=== PATIENT | female | born 1955 | race African-American/Black ===

== ENCOUNTER → 2018-09-25 07:24 | Outpatient (CLI) | payer MEDICAID ==
[2010-12-14 08:25] VITALS: BMI 28.9
== END | disposition home or self-care (01) ==
LOC: D.US 07:24
DX: N28.9 Disorder of kidney and ureter, unspecified (principal)

== ENCOUNTER 2019-07-26 15:56 | Inpatient (IN) | payer MEDICAID ==
[~2019-07-26] VITALS: Ht 170.2 cm; Wt 77.3 kg
[2019-07-26 16:12] LABS: BASOPHILS 0.9 % (0-2); EOSINOPHILS 7.5 % (0-7); HEMATOCRIT 34.4 % (36.0-48.0); HEMOGLOBIN 10.8 g/dL (12-16); IMMATURE GRANULOCYTES 0.2 % (0-5); LYMPHOCYTES 34.7 % (15-50); MCH 22.5 pg (26.0-34.0); MCHC 31.4 g/dL (31.0-37.0); MCV 71.7 fL (80.0-100.0); MEAN PLATELET VOLUME 10.5 fL (7.4-10.4); MONOCYTES 6.7 % (2-11); PLATELET COUNT 281 10x3/uL (130-400); RDW 15.3 % (11.5-14.5); WBC 6.6 10x3/uL (4.8-10.8)
[2019-07-26 16:22] LABS: INR 1.03 (0.85-1.17)
[2019-07-26 16:23] LABS: APTT 32.9 SECONDS (22.8-39.4)
[2019-07-26 16:57] LABS: ALKALINE PHOSPHATASE 96 U/L (46-116); ALT (SGPT) 21 U/L (10-68); CALC OSMOLALITY 287 mosm/kg (275-300); CALCIUM 8.6 mg/dL (8.5-10.1); CARBON DIOXIDE 30.1 mmol/L (21.0-32.0); CHLORIDE - SERUM 104 mmol/L (98-107); GLUCOSE 149 mg/dL (74-106); POTASSIUM - SERUM 4.6 mmol/L (3.5-5.1); PROTEIN - SERUM 6.8 g/dL (6.4-8.2); SODIUM 141 mmol/L (136-145); UREA NITROGEN 25 mg/dL (7-18); eGFR NON AFRICAN AMERICAN 27 mL/min (90-120)
[2019-07-26 17:04] LABS: CKMB 0.5 U/L (0.0-3.6); CREATINE KINASE 50 UL (21-215); MAGNESIUM - SERUM 2.1 mg/dL (1.8-2.4); TROPONIN-I < 0.017 ng/mL (0.000-0.060)
--- NOTE | 2019-07-26 17:27 | NUR ---
PATIENT STATES, "I WANT TO SLAP THE OUT OF DR. WELLS. I DON'T LIKE THE WAY HE LOOKS. HE NEVER BRINGS ME BLANKETS AND HE'S NOT DR. CHRIS." RN GAVE PATIENT 2 BLANKETS AND MADE SURE SHE IS COMFORTABLE. NOTIFIED. ORTHOSTAIC VS OBTAINED. PT TOLERATED WELL.
--- NOTE | 2019-07-26 17:42 | NUR ---
PATIENT AMBULATED 25 FEET TO BATHROOM WITHOUT ISSUE.
[2019-07-26 18:03] LABS: APPEARANCE CLEAR (CLEAR); BILIRUBIN NEGATIVE (NEGATIVE); COLOR YELLOW (YELLOW); GLUCOSE NEGATIVE (NEGATIVE); KETONE NEGATIVE (NEGATIVE); NITRITE NEGATIVE (NEGATIVE); PROTEIN NEGATIVE (NEGATIVE); SPECIFIC GRAVITY 1.015 (1.005-1.020); UROBILINOGEN NORMAL (NORMAL)
--- NOTE | 2019-07-26 18:21 | NUR ---
PATIENT REQUESTED I CALL SON, BURT AT [phone] AND LET HIM KNOW SHE WILL BE ADMITTED AND GAVE PERMISSION TO TELL HIM HER "KIDNEYS AREN'T WORKING REAL WELL". SPOKE TO BURT AND HE WILL CALL PATIENT WHEN SHE'S ADMITTED TO THE FLOOR.
--- NOTE | 2019-07-26 19:30 | NUR ---
PT GIVEN SANDWICH TO EAT AND WARM BLANKETS. DENIES ANY FURTHER NEEDS AT THIS TIME. WILL CONTINUE TO MONITOR.
--- NOTE | 2019-07-26 22:28 | NUR ---
B/P RECHECKED AND 168/. NOTIFIED REED POSEY WITH NEW ORDER FOR APRESOLINE 10 MGIV Q6 HRS PRN FOR SYSTOLIC GREATER THAN 170. ALSO, START PROTONIX AND EP.
--- NOTE | 2019-07-26 22:30 | NUR ---
REED POSEY RESTARTED COREG 12.5 MG BID.
[2019-07-26 22:31] VITALS: BP 210/100; Ht 170.2 cm; Wt 77.3 kg
[2019-07-26 22:37] VITALS: BP 168/72
--- NOTE | 2019-07-26 22:41 | NUR ---
RECIEVED REPORT FROM MOISÉS RN IN ER. ARRIVED TO FLOOR AT 2140. PT DOES'NT KNOW WHAT MEDICATIONS SHE TAKES. STATES SHE HAS NO FAILY HERE AND WILL SEE IF HER FRIEND WILL GET HER MEDICATIONS FROM HOME. B/P 210/100 ON ADMISSION. ER NURSE STATED SHE HAD GIVEN HER A CLONIDINE 0.1 BEFORE BRINGING HER OVER. RECHECKED AND 168/72. NEW ORDERS RECIEVED AND PT AWARE. IV TO LEFT AC WITH NS INFUSING AT 125CC/HR. NO REDNESS OR SWELLINGF TO SITE. DENIES ANY NEEDS AT THIS TIME. ALSO, ASKED WHY WE CAN'T CAll DR. CASTANEDA AND GET A LIST OF HER MEDICATIONS. EXPLAINED THAT WE ARE NOT ABLE TO CALL HIM AND THAT DR. KOEHLER IS HER DOCTOR HERE. ASSESSMENT COMPLETED.
[2019-07-26 23:50] VITALS: BP 190/80
--- NOTE | 2019-07-26 23:57 | NUR ---
RECHECKED B/P 160/98.
[2019-07-27 04:30] VITALS: BP 170/85
[2019-07-27 05:06] LABS: BASOPHILS 0.8 % (0-2); EOSINOPHILS 4.7 % (0-7); HEMATOCRIT 30.1 % (36.0-48.0); HEMOGLOBIN 9.3 g/dL (12-16); LYMPHOCYTES 50.8 % (15-50); MCH 21.9 pg (26.0-34.0); MCHC 30.9 g/dL (31.0-37.0); MEAN PLATELET VOLUME 10.2 fL (7.4-10.4); MONOCYTES 5.1 % (2-11); NEUTROPHILS 38.6 % (40-80); RBC 4.24 10x6/uL (4.00-5.40); RDW 14.8 % (11.5-14.5); WBC 6.6 10x3/uL (4.8-10.8)
[2019-07-27 05:13] LABS: PLATELET COUNT 214 10x3/uL (130-400)
[2019-07-27 05:32] LABS: ALBUMIN 2.7 g/dL (3.4-5.0); ALKALINE PHOSPHATASE 84 U/L (46-116); BILIRUBIN - TOTAL 0.21 mg/dL (0.2-1.3); CALCIUM 8.2 mg/dL (8.5-10.1); CARBON DIOXIDE 25.7 mmol/L (21.0-32.0); CHLORIDE - SERUM 107 mmol/L (98-107); CKMB 0.6 U/L (0.0-3.6); CREATINE KINASE 80 UL (21-215); CREATININE - SERUM 1.5 mg/dL (0.6-1.3); MAGNESIUM - SERUM 2.1 mg/dL (1.8-2.4); PHOSPHOROUS 3.2 mg/dL (2.5-4.9); POTASSIUM - SERUM 4.7 mmol/L (3.5-5.1); PROTEIN - SERUM 5.5 g/dL (6.4-8.2); SODIUM 139 mmol/L (136-145); THYROID STIMULATING HORMONE 3.14 uIU/mL (0.36-3.74); TROPONIN-I 0.037 ng/mL (0.000-0.060); UREA NITROGEN 27 mg/dL (7-18); eGFR NON AFRICAN AMERICAN 37 mL/min (90-120)
[2019-07-27 05:37] LABS: ALT (SGPT) 15 U/L (10-68); CALC OSMOLALITY 282 mosm/kg (275-300); GLUCOSE 99 mg/dL (74-106)
--- NOTE | 2019-07-27 07:00 | NUR ---
RECEIVED REPORT. ASSUMED CARE OF PATIENT. RESTING IN BED WITH EYES OPEN. CALL LIGHT WITHIN REACH. NO DISTRESS.
--- NOTE | 2019-07-27 07:30 | NUR ---
ANSWERED PATIENT CALL LIGHT. PATIENT WANT TO KNOW WHAT TIME BREAKFAST IS SERVED AND WHY IS NOBODY ANSWERING CALL LIGHTS THIS MORNING. APOLOGIZED TO PATIENT THIS NURSE JUST FINISHED RECEIVING REPORT AND CAME STRAIGHT BACK TO ANSWER HER CALL LIGHT. NO FURTHER QUESTIONS. DENIES ANY OTHER NEEDS AT THIS TIME.
--- NOTE | 2019-07-27 08:36 | NUR ---
BP 208/110. IV HYDRALAZINE ADMINISTERED AT THIS TIME OVER 2 MONIUTES.
--- NOTE | 2019-07-27 08:45 | NUR ---
B 137/66 RIGHT ARM AT THIS TIME. HYDRALAZINE EFFECTIVE.
[2019-07-27 09:02] VITALS: BP 122/83; BP 149/82; BP 201/101
[2019-07-27 11:30] VITALS: BP 164/83
--- NOTE | 2019-07-27 11:54 | NUR ---
FSBS 138. NO INSULIN PER SLIDING SCALE.
--- NOTE | 2019-07-27 15:20 | NUR ---
YOSELYN HOSE APPLIED TO BILATERAL LOWER EXTREMITIES AT THIS TIME.
[2019-07-27 17:47] VITALS: BP 159/80
--- NOTE | 2019-07-27 18:07 | NUR ---
PATIENT RESTING IN BED. PATIENTS SON AT BEDSIDE. IV FLUIDS INFUSING ORDERED. NO DISTRESS. CALL LIGHT WITHIN REACH.
[2019-07-27 19:07] LABS: % SATURATION 33 % (15-55); IRON 64 ug/dl (35-150); TOTAL IRON BIND CAPACITY 190 ug/dl (260-445); UNSAT IRON BIND CAPACITY 126 ug/dl (150-375)
--- NOTE | 2019-07-27 19:20 | NUR ---
RECIEVED BEDSIDE REPORT FROM OFF GOING NURSE. RECIEVED UP IN BED WITH 2 SONS AT BEDSIDE. ALERT AND ORIENTED X4. UP WITH ASSIST TO TOILET. IV TO LEFT AC WITH NS INFUSING AT 125CC/HR. NO REDNESS OR SWELLING OBSERVED. DSG INTACT. DENIES ANY NEEDS AT THIS TIME.
[2019-07-27 20:00] VITALS: BP 209/103
--- NOTE | 2019-07-27 21:20 | NUR ---
B/P 209/103 APRESOLINE GIVEN PER ORDERS WILL RECHECK. B/P.
[2019-07-28] VITALS: BP 182/87
--- NOTE | 2019-07-28 00:37 | NUR ---
PT HAS TURNED HER IV PUMP OFF.
[2019-07-28 04:00] VITALS: BP 162/78
--- NOTE | 2019-07-28 04:00 | NUR ---
I have reviewed this patient and I concur with the Shift Assessment completed by the Licensed Practical Nurse today this shift.
[2019-07-28 04:05] VITALS: BP 159/74; BP 162/78
[2019-07-28 04:06] VITALS: BP 169/80
[2019-07-28 04:47] LABS: BASOPHILS 0.6 % (0-2); HEMATOCRIT 31.5 % (36.0-48.0); HEMOGLOBIN 9.8 g/dL (12-16); IMMATURE GRANULOCYTES 0.1 % (0-5); LYMPHOCYTES 36.4 % (15-50); MCH 21.9 pg (26.0-34.0); MCHC 31.1 g/dL (31.0-37.0); MCV 70.3 fL (80.0-100.0); MEAN PLATELET VOLUME 10.5 fL (7.4-10.4); MONOCYTES 7.1 % (2-11); NEUTROPHILS 51.8 % (40-80); PLATELET COUNT 216 10x3/uL (130-400); RBC 4.48 10x6/uL (4.00-5.40); RDW 15.1 % (11.5-14.5); WBC 6.7 10x3/uL (4.8-10.8)
[2019-07-28 04:50] LABS: CALCIUM 8.3 mg/dL (8.5-10.1); CARBON DIOXIDE 22.6 mmol/L (21.0-32.0); CREATININE - SERUM 1.4 mg/dL (0.6-1.3); POTASSIUM - SERUM 4.6 mmol/L (3.5-5.1)
--- NOTE | 2019-07-28 07:00 | NUR ---
RECEIVED REPORT. ASSUMED CARE OF PATIENT. CALL LIGHT WITHIN REACH. RESTING IN BED WITH EYES CLOSED, EASILY AROUSED. NO DISTRESS.
--- NOTE | 2019-07-28 07:30 | NUR ---
PATIENT REQUESTING TO BE TOTALLY DISCONNECTED FROM IV. IV IS OFF AT THIS TIME. EXPLAINED TO PATIENT THAT WHILE HOOKED TO FLUIDS FOR HYDRATION HER KIDNEY FUNCTIONS IMPROVED AND WE WOULD LIKE TO SEE HER KIDNEY FUNCTION IMPROVE A LITTLE BIT MORE AND THAT IT WOULD BE A GOOD IDEA IF WE COULD TURN THE IV FLUIDS BACK ON. PATIENT AGREEABLE TO TURN FLUIDS BACK ON AT THIS TIME. PATIENTS SONS AT BEDSIDE. CALL LIGHT WITHIN REACH. NO DISTRESS.
[2019-07-28] MEDS ORDERED: PROTONIX40 MG PO (09:35)
[2019-07-28] MEDS ORDERED: COREG12.5 MG PO (09:35)
--- NOTE | 2019-07-28 09:45 | NUR ---
PATIENT IN SHOWER AT THIS TIME. NO DISTRESS.
--- NOTE | 2019-07-28 10:30 | NUR ---
20 GAUGE IV REMOVED FROM LEFT AC. CATHETER TIP INTACT. NO BLEEDING FROM SITE. 2X2 GAUZE APPLIED AND SECURED WITH BANDAID. TELEMETRY REMOVED AND RETURNED TO BUSINESS ADVISOR.
--- NOTE | 2019-07-28 10:37 | NUR ---
DISCHARGE INSTURCTIONS PROVIDED TO PATIENT AND HER SONS. PATIENT VERBALIZED UNDERSTANDING OF DISCHARGE INSTRUCTIONS. ENCOURAGED PATIENT TO GET OOB EVERY DAY AND STAY ACTIVE, TO GET INVOLVED WITH A HOBBY. PATIENTS SONS VERY SUPPORTIVE OF THIS IDEA.
--- NOTE | 2019-07-28 10:47 | MORECARE ---
CASE MANAGEMENT DISCHARGE SUMMARY PATIENT: PETER SANDERS UNIT: [id number] ADM DATE: 07/27/19 AGE: 63 : 55 SEX: F ROOM/BED: D.2108 AUTHOR: LADY TERRAZAS PHYSICIAN: REFERRING PHYSICIAN: CHASE KOEHLER MD DATE OF SERVICE: 07/28/19 Discharge Plan Patient Name: PETER SANDERS Facility: [facility]:[place] : 1955 Planned Disposition: Home or Self Care Anticipated Discharge Date: 07/28/19 Discharge Date: Expected LOS: 1 Initial Reviewer: [email or web address] Initial Review Date: 07/28/2019 Generated: 07/28/19 11:46 am Comments DCP- Discharge Planning Updated by [email or web address]: Macey Molina on 07/28/19 9:[address] Patient Name: PETER SANDERS Admission Status: ER Accout number: [id number] Admission Date: 07-27-2019 : 1955 Admission Diagnosis: Attending: CHASE KOEHLER Current LOS: 1 Anticipated DC Date: 07-28-2019 Planned Disposition: Home or Self Care Primary Insurance: [facility] PRIVATE OPTIONS [place] Discharge Planning Comments: CM SPOKE WITH PATIENT ABOUT DC PLANNING/NEEDS. PLANS TO DC TO HOME TODAY AND DENIES ANY NEEDS. CM WILL FOLLOW AND ASSIST NEEDED. Electric Hoist Operator: Macey Molina DCPIA - Discharge Planning Initial Assessment Updated by [email or web address]: Macey Molina on 07/28/19 10:42 am * Is the patient Alert and Oriented? Yes * PCP LEONEL * [facility] * Preadmission Environment Home Alone * ADLs Independent * Equipment None * Community resources currently utilized None * Additional services required to return to the preadmission environment? No * Can the patient safely return to the preadmission environment? Yes * Has this patient been hospitalized within the prior 30 days at any hospital? No Patient Name: PETER SANDERS Page [phone] at 1047 All edits/amendments must be made on the electronic document DICTATION DATE: 07/28/19 1046 SPACE ENGINEER: BRIANA 07/28/19 1046 RPT#: [id number] DC DATE: STATUS: ADM IN [facility] [address] [place] [address] END OF REPORT
--- NOTE | 2019-07-28 11:01 | NUR ---
PATIENT LEFT UNIT VIA WHEELCHAIR WITH ALL PERSONAL BELONGINGS. PATIENT DISCHARGED TO HOME WITH HER TWO SONS. PATIENT WILL BE LEAVING FOR [place] AND GETTING ESTABLISHED WITH A NEW PROVIDER. PATEINT AND FAMILY THANKED THIS CASK MAKER FOR CARES RENDERED DURING THIS STAY. NO DISTRESS UPON LEAVING UNIT.
[2019-07-28 12:30] VITALS: BP 198/93
--- NOTE | 2019-07-29 09:25 | MORECARE ---
CASE MANAGEMENT DISCHARGE SUMMARY PATIENT: PETER SANDERS UNIT: [id number] ADM DATE: 07/27/19 AGE: 63 : 55 SEX: F ROOM/BED: D.2105 AUTHOR: LADY TERRAZAS PHYSICIAN: REFERRING PHYSICIAN: CHASE KOEHLER MD DATE OF SERVICE: 07/29/19 Discharge Plan Patient Name: PETER SANDERS Facility: [facility]:[place] : 1955 Planned Disposition: Home or Self Care Anticipated Discharge Date: 07/28/19 Discharge Date: 07/28/2019 Expected LOS: 1 Initial Reviewer: [email or web address] Initial Review Date: 07/28/2019 Generated: 07/29/19 10:24 am Comments DCP- Discharge Planning Updated by [email or web address]: Macey Molina on 07/28/19 9:[address] Patient Name: PETER SANDERS Admission Status: ER Accout number: [id number] Admission Date: 07-27-2019 : 1955 Admission Diagnosis: Attending: CHASE KOEHLER Current LOS: 1 Anticipated DC Date: 07-28-2019 Planned Disposition: Home or Self Care Primary Insurance: [place] PRIVATE OPTIONS [facility] Discharge Planning Comments: CM SPOKE WITH PATIENT ABOUT DC PLANNING/NEEDS. PLANS TO DC TO HOME TODAY AND DENIES ANY NEEDS. CM WILL FOLLOW AND ASSIST NEEDED. Retail Custodial Associate: Macey Molina DCPIA - Discharge Planning Initial Assessment Updated by [email or web address]: Macey Molina on 07/28/19 10:42 am * Is the patient Alert and Oriented? Yes * PCP LEONEL * [facility] * Preadmission Environment Home Alone * ADLs Independent * Equipment None * Community resources currently utilized None * Additional services required to return to the preadmission environment? No * Can the patient safely return to the preadmission environment? Yes * Has this patient been hospitalized within the prior 30 days at any hospital? No Last DP export: 07/28/19 9:46 am Patient Name: PETER SANDERS Page [phone] at 0925 All edits/amendments must be made on the electronic document DICTATION DATE: 07/29/19923 REMOTE SENSING SPECIALIST: BRIANA 07/29/19923 RPT#: [id number] DC DATE:07/28/19 STATUS: DIS IN [facility] [address] [place] [address] END OF REPORT
== END 2019-07-28 11:05 | disposition home or self-care (01) | DRG 312 ==
LOC: D.ER 15:56 → OBSVTIME 19:04 → D.M2 19:04
PROVIDERS: Family Medicine; ADMIT Internal Medicine Nephrology; ATTEND Internal Medicine Nephrology
DX: I95.1 Orthostatic hypotension (principal); N17.9 Acute kidney failure, unspecified; E11.9 Type 2 diabetes mellitus without complications; I10 Essential (primary) hypertension; D50.9 Iron deficiency anemia, unspecified